=== PATIENT | female | born 1955 | race Hispanic/Latino ===

== ENCOUNTER 2017-04-29 10:02 | Day surgery (SDC) | payer MEDICARE ==
[~2017-04-29] VITALS: Ht 154.9 cm; Wt 62.1 kg
[~2017-04-29 10:02] MED LIST: ASPIRIN ADULT L81 M2 PO; INTEGRA PO; LANTUS100 UNIT/M SC; LEVOTHYROXIN137 MCG PO; LISINOP/HCTZ1 TA1 PO; MELOXICAM15 MG PO; METFORMIN1000 MG PO
[2017-04-29 15:05] VITALS: BP 162/77
== END 2017-04-29 15:25 | disposition home or self-care (01) ==
LOC: ENDO 10:02 → ORM 10:45 → PO 10:45 → ORM 11:15 → PO 11:30 → ENDO 15:25
PROVIDERS: ATTEND Internal Medicine Gastroenterology
PROC: 0DJD8ZZ Inspection of Lower Intestinal Tract, Via Natural or Artificial Opening Endoscopic (ICD-10-PCS; principal; 2017-04-29)
DX: D64.9 Anemia, unspecified (principal); K57.30 Diverticulosis of large intestine without perforation or abscess without bleeding; K64.4 Residual hemorrhoidal skin tags; K64.8 Other hemorrhoids; I10 Essential (primary) hypertension; E11.9 Type 2 diabetes mellitus without complications; E03.9 Hypothyroidism, unspecified; Z86.010 Personal history of colon polyps